=== PATIENT | female | born 1960 | race Caucasian/White ===

== ENCOUNTER 2018-06-15 19:17 | Emergency (ER) | payer BC ==
[~2018-06-15] VITALS: Ht 170.2 cm; Wt 83.9 kg
[2018-06-15] MEDS ORDERED: XIGDUO XR 10 M1 EAC1 PO (19:32)
[2018-06-15] MEDS ORDERED: ASPIRIN81 MG PO (19:33)
[2018-06-15] MEDS ORDERED: OMEPRAZOLE5 GM MISC (19:33)
--- NOTE | 2018-06-16 14:17 | EKG ---
[facility] [address] [place], [place] [address] Signed Sinus rhythm with occasional premature ventricular complexes Otherwise normal ECG No previous ECGs available Confirmed by MAINE DOS SANTOS MD ([id number] on 06/16/2018 2:16:45 PM Electronically Signed By: MAINE DOS SANTOS MD 06/16/18 1417 PATIENT NAME: NOHELIA WHITAKER Electrocardiogram DATE OF : 62 PHYSICIAN: MAINE DOS SANTOS MD REPORT #: [id number] REPORT IS CONFIDENTIAL AND NOT TO BE RELEASED WITHOUT AUTHORIZATION
== END 2018-06-15 21:33 | disposition home or self-care (01) ==
LOC: ED 19:17
DX: R07.89 Other chest pain (principal); E11.9 Type 2 diabetes mellitus without complications; Z85.3 Personal history of malignant neoplasm of breast; Z88.2 Allergy status to sulfonamides; Z79.82 Long term (current) use of aspirin
CPT/HCPCS: 71045; 80053; 84484; 85025; 85379; 93005; 93010; 99285-25